=== PATIENT | male | born 1975 | race Caucasian/White ===

== ENCOUNTER 2021-08-16 19:11 | Emergency (ER) | payer OTHER, SELFPAY ==
[2021-08-16 20:00] VITALS: BP 139/72; PULSE 86; RESP 20; TEMP 36.8; O2SAT 96; BMI 29.0
--- NOTE | 2021-08-16 21:13 | ED_ITS ---
HPI - General Adult General Chief complaint: Back Pain/Injury Stated complaint: back pain Time Seen by Provider: 08/16/21 21:08 Source: patient Limitations: no limitations History of Present Illness HPI narrative: This is a 45-year-old male complains of low back pain bilaterally for 4 days. The patient denies any distinct injury such as lifting or any fall. He states the pain seems to have come on after he was bent over going into a line up examiner her bureau and turned around. The pain does radiate to his legs and is worse with ambulation. He denies any numbness or weakness or tingling in his legs. He notes some delay on urination due to the pain but is able to urinate. Denies any urinary frequency or dysuria. He does have history of prior back pain. He has tried taking acetaminophen as well as a muscle relaxant he had left over from prior prescription yesterday. He has not tried any NSAIDs, states they do not work. He has history of arthritis in his hands, and history of asthma. Related Data Previous Rx's Medication Instructions Recorded cyclobenzaprine 10 mg tablet 10 mg PO TID PRN muscle spasm #20 08/16/21 tabs ibuprofen 800 mg tablet 800 mg PO Q8H PRN pain #30 tabs 08/16/21 Allergies Allergy/AdvReac Type Severity Reaction Status Date / Time No Known Allergies Allergy Mild NOT Verified 08/16/21 20:03 APPLICABLE Review of Systems Constitutional: Constitutional: Reports as per HPI Cardiovascular: Cardiovascular: Reports no additional cardiovascular complaints Respiratory: Respiratory: Reports no additional respiratory complaints Gastrointestinal: Gastrointestinal: Reports no additional gastrointestinal complaints Genitourinary: Genitourinary: Reports as per HPI Musculoskeletal: Musculoskeletal: Reports back pain Neurologic: Denies focal weakness, Denies Sensory deficit (Neuro) and Denies paresthesias [facility] Social History Social History Advance Directives: No Physical Exam ED Vital Signs: Vital Signs - 24 hr 08/16/21 20:00 08/16/21 22:22 Temperature 98.2 F 97.6 F Pulse Rate 86 72 Respiratory Rate 20 16 Blood Pressure 139/72 136/83 Pulse Oximetry 96 93 Oxygen Delivery Method Room Air Room Air BMI result Body Mass Index 29.0 Const Other: Patient sitting up on the edge of the gurney. Straight leg elicit some pain bilaterally and about 45 degrees while sitting, though patient seems little dramatic General: no acute distress Orientation/consciousness: patient oriented x3 HENMT Head: Yes normal to inspection General nose exam: Normal external nose present Mouth: moist mucous membranes Throat: Yes posterior oropharynx normal, Yes tonsils normal and Yes uvula midline Eyes Eyelids: Yes eyelids normal Conjunctivae: conjunctivae normal Pupils: Equal, round and reactive pupils present Neck Neck: Yes supple Resp Effort & Inspection: normal respiratory effort Auscultation: clear to auscultation bilaterally Cardio Rate: regular rate Rhythm: regular rhythm Heart sounds: S1 normal heart sound present, S2 normal heart sound present, no gallops, no murmurs and no rubs GI Inspection: No distended Palpation (GI): Soft to palpation and nontender Auscultation: normal bowel sounds Back/Spine/Pelvis Back: other (Tender bilateral lumbar back and lumbar spine) Skin General skin exam: other (Warm and dry) Neuro Other: No sensory motor deficit to the lower extremities General: patient oriented x3 and CN's II-XI intact bilaterally Cranial nerves: Yes Equal, round and reactive pupils present Sensory Exam: No Sensory deficit (Neuro) Extrem General: Yes no pedal edema Psych Affect: normal affect Attitude: cooperative Medical Decision Making [facility] Narrative Medical decision making narrative: Patient with low back pain of onset after he was bending going into a drawer and a bureau. Patient has no urinary symptoms. Patient has had prior episodes of low back pain that were similar. Patient improved with Toradol, Valium, and tramadol. Will discharge the patient on ibuprofen and cyclobenzaprine. Discharge Plan Discharge Clinical Impression: Low back pain Patient Disposition: Home, Self-Care Instructions: Acute Low Back Pain (ED) Additional Instructions: Use an ice pack off and on. Take the medicines as prescribed. Follow up with your primary care physician. If your pain persists, you may need physical therapy referral should Prescriptions: New ibuprofen 800 mg tablet 800 mg PO Q8H PRN (Reason: pain) Qty: 30 0RF cyclobenzaprine 10 mg tablet 10 mg PO TID PRN (Reason: muscle spasm) Qty: 20 0RF
--- NOTE | 2021-08-16 21:26 | PC.NURSE ---
this PCT asked patient if he was able to give a urine sample the patient said he was unable to void.
[2021-08-16] MEDS: Ketorolac Tromethamine 30 MG/ML VIAL IM (22:01)
[2021-08-16] MEDS: diazePAM 2 MG TABLET 6 MG PO (22:02)
[2021-08-16] MEDS: traMADoL HCL 50 MG TABLET 100 MG PO (22:02)
[2021-08-16 22:05] VITALS: RESP 16
[2021-08-16 22:22] VITALS: BP 136/83; PULSE 72; RESP 16; TEMP 36.4; O2SAT 93
== END 2021-08-16 22:30 | disposition home or self-care (01) ==
PROVIDERS: Emergency Provider Emergency Medicine
DX: M54.50 Low back pain, unspecified (principal)
CPT/HCPCS: 96372; 99283; 99284; J1885

== ENCOUNTER 2021-10-01 15:38 | Emergency (ER) | payer OTHER, SELFPAY ==
--- NOTE | ~2021-10-01 | XR_ITS ---
EXAMINATION: XR KNEE, LEFT CLINICAL INFORMATION: Pain and swelling. No new injury. COMPARISON: Left knee radiographs 01/17/2018 TECHNIQUE: Four views of the left knee. FINDINGS: Moderate size knee joint effusion. No acute fracture or dislocation. Mild deformity of the lateral tibial plateau compatible with a prior healed fracture status post screw fixation and cement augmentation. Minimal medial compartment joint space narrowing. Small tricompartmental marginal osteophytes. Enthesophyte formation at the superior patellar pole. XR/XR knee LT 4V IMPRESSION: 1. Moderate size knee joint effusion. No acute fracture identified. 2. Healed lateral tibial plateau fracture status post ORIF. 3. Mild tricompartmental knee joint osteoarthritis.
[2021-10-01 17:12] VITALS: BP 129/85; PULSE 87; RESP 16; TEMP 36.5; O2SAT 95; BMI 30.3
== END 2021-10-01 19:58 | disposition left against medical advice (07) ==
PROVIDERS: Emergency Provider Emergency Medicine; PCP Pediatrics
DX: M25.562 Pain in left knee (principal)
CPT/HCPCS: 73564; 99281; 99283

== ENCOUNTER 2021-10-07 23:50 | Emergency (ER) | payer OTHER, SELFPAY ==
--- NOTE | ~2021-10-07 | XR_ITS ---
EXAMINATION: XR KNEE, LEFT CLINICAL INFORMATION: Pain COMPARISON: 10/01/2021 TECHNIQUE: Four views of the left knee. FINDINGS: No acute fracture or dislocation. Mild deformity redemonstrated in the lateral tibial plateau status post ORIF with 2 cannulated screws traversing the tibial plateau from a lateral to medial approach with cement augmentation in the lateral tibial metaphysis. Small knee joint effusion. XR/XR knee LT 4V IMPRESSION: No acute fracture or dislocation. Small knee joint effusion.
[2021-10-08 00:03] VITALS: BP 135/78; PULSE 87; RESP 18; TEMP 36.6; O2SAT 96; BMI 30.3
[2021-10-08 00:22] LABS: MANUAL DIFF FLAG NO
[2021-10-08 00:25] LABS: Basophils Absolute Auto 0.1 X10*3/uL (0.0-0.2); Basophils Percent Auto 0.9 % (0-2); Eosinophils Absolute Auto 0.2 X10*3/uL (0.0-0.4); Eosinophils Percent Auto 2.2 % (0-4); Hematocrit 43.4 % (42.0-52.0); Hemoglobin 14.5 g/dl (14.0-18.0); Imm Gran Abs Auto 0.05 X10*3/uL (0.00-0.03); Imm Gran Pct Auto 0.6 % (0.0-0.4); Lymphocytes Absolute Auto 3.2 X10*3/uL (1.2-4.9); Lymphocytes Percent Auto 39.8 % (20-40); Mean Corpuscular HGB Conc 33.4 g/dl (31.0-36.0); Mean Corpuscular Hemoglobin 28.3 pg (27.0-33.0); Mean Corpuscular Volume 84.6 fL (80.0-98.0); Mean Platelet Volume 9.2 fL (9.4-12.4); Monocytes Absolute Auto 0.7 X10*3/uL (0.1-1.2); Monocytes Percent Auto 8.3 % (2-11); Neutrophils Absolute Auto 3.9 x10*3/uL (2.0-8.3); Neutrophils Percent Auto 48.2 % (45-73); Platelet Count 252 X10*3/uL (160-400); Red Blood Count 5.13 X10*6/uL (4.60-5.80); White Blood Count 8.1 X10*3/uL (4.8-10.8)
[2021-10-08 00:43] LABS: Alanine Aminotransferase 31 U/L (0-40); Albumin Level 4.4 g/dL (3.5-5.0); Alkaline Phosphatase 108 U/L (39-117); Anion Gap 16 (12-20); Aspartate Amino Transferase 18 U/L (5-37); Bilirubin Total 0.3 mg/dL (0.0-1.0); Blood Urea Nitrogen 5 mg/dL (9-16); Calcium 9.4 mg/dL (8.4-10.2); Carbon Dioxide 24 mmol/L (22-29); Chloride 104 mmol/L (96-108); Creatinine Clr Calc Pharmacy 125.8; Estimated Glomerular Filt Rate > 60; Glucose Random 174 mg/dL (60-115); Sodium 140 mmol/L (135-145); Total Protein 7.3 g/dL (6.5-8.0)
[2021-10-08 01:47] VITALS: BP 150/96; PULSE 79; RESP 16; TEMP 36.6; O2SAT 97
[2021-10-08 04:13] VITALS: BP 139/85; PULSE 68; RESP 14; O2SAT 97
--- NOTE | 2021-10-08 04:24 | ED.EXTPRO ---
HPI - Extremity Problem General Chief complaint: Extremity Problem Stated complaint: L knee pain, out of place? Time Seen by Provider: 10/08/21 04:22 History of Present Illness HPI Narrative: Patient is 45 years old with a history of having screws placed into the left knee in the past. Was seen at [facility] fluid was taken out from the knee. Complaining of worsening pain again. There is no fever no chills no systemic complaints. Patient was given ibuprofen. Patient denies any coughing congestion upper respiratory symptoms. No travel history. No trauma. Patient is from home. There is good range of motion at the knee. The pain however is worse with movement. Related Data Previous Rx's Medication Instructions Recorded cyclobenzaprine 10 mg tablet 10 mg PO TID PRN muscle spasm #20 08/16/21 tabs ibuprofen 800 mg tablet 800 mg PO Q8H PRN pain #30 tabs 08/16/21 Allergies Allergy/AdvReac Type Severity Reaction Status Date / Time No Known Allergies Allergy Mild NOT Verified 10/01/21 17:14 APPLICABLE Review of Systems Review of Systems: Positive knee pain Yes all other systems are reviewed and are negative [facility] Past Medical History Attestation statement: The following information was validated with the patient. Medical History Arthritis Asthma Migraine Social History Social History Advance Directives: No Advance Directives Information Provided: No Physical Exam Vital Signs: Vital Signs: Last Vital Signs Temp 97.8 F 10/08/21 01:47 Pulse 68 10/08/21 04:13 Resp 14 10/08/21 04:13 BP 139/85 10/08/21 04:13 Pulse Ox 97 10/08/21 04:13 O2 Del Method 10/08/21 04:13 BMI result Body Mass Index 30.3 Appearance: Alert. Oriented X3. No acute distress. Eyes: Pupils equal, round and reactive to light. ENT: Pharynx normal. Neck: Normal inspection. Neck supple. No lymph nodes noted. No crepitus CVS: Normal heart rate and rhythm. Pulses normal. Normal S1 and S2 Respiratory: No respiratory distress. Breath sounds normal. No Wheezing. No rales Abdomen: Soft and nontender. No rigidity. No distention. good BS x4 Skin: Skin warm and dry. Normal skin color. Normal skin turgor. Extremities: Examination of the left knee showed positive effusion there is no patellar tenderness. There is no medial lateral collateral ligament tenderness. Range of motion grossly intact good distal pulses skin intact. Moving toes well. Neuro: Oriented X 3. No motor deficit. No sensory deficit. Moving all extermities. No slurred speech MDM - Extremity (Nontraumatic) MDM Narrative Medical decision making narrative: Will tap the knee again to rule out the possibility of infection. Also hope in removal of the effusion may help with the pain. Currently in stable condition. X-ray showed no gross evidence of fracture. Chemistry was normal. Attempted knee fluid aspiration x1. Patient complaining of too much pain. Wanted us to stop. We stopped. Understood risk of infection still exist. Leaving against medical advice more likely patient has inflammation. Will take Motrin for pain. Patient has orthopedic follow-up in a week. He is currently in stable condition. Lab Data Result diagrams: 10/08/21 00:16 10/08/21 00:16 Labs: Lab Results 10/08/21 10/08/21 Range/Units 00:16 00:16 WBC 8.1 (4.8-10.8) X10*3/uL RBC 5.13 (4.60-5.80) X10*6/uL Hgb 14.5 (14.0-18.0) g/dl Hct 43.4 (42.0-52.0) % MCV 84.6 (80.0-98.0) fL MCH 28.3 (27.0-33.0) pg MCHC 33.4 (31.0-36.0) g/dl RDW 15.0 (11.0-16.0) % Plt Count 252 (160-400) X10*3/uL MPV 9.2 L (9.4-12.4) fL Immature Gran % (Auto) 0.6 H (0.0-0.4) % Neut % (Auto) 48.2 (45-73) % Lymph % (Auto) 39.8 (20-40) % [place] % (Auto) 8.3 (2-11) % Eos % (Auto) 2.2 (0-4) % Baso % (Auto) 0.9 (0-2) % Lymph # (Auto) 3.2 (1.2-4.9) X10*3/uL [place] # (Auto) 0.7 (0.1-1.2) X10*3/uL Eos # (Auto) 0.2 (0.0-0.4) X10*3/uL Baso # (Auto) 0.1 (0.0-0.2) X10*3/uL Abs Immat Gran (auto) 0.05 H (0.00-0.03) X10*3/uL Absolute Neuts (auto) 3.9 (2.0-8.3) x10*3/uL Absolute Nucleated RBC 0.000 (0.0-0.012) X10*3/uL Nucleated RBC % (auto) 0.0 (0.0-0.2) /100WBC Sodium 140 (135-145) mmol/L Potassium 4.0 (3.3-5.1) mmol/L Chloride 104 (96-108) mmol/L Carbon Dioxide 24 (22-29) mmol/L Anion Gap 16 (12-20) BUN 5 L (9-16) mg/dL Creatinine 0.96 (0.5-1.4) mg/dL Estim Creat Clear Calc 125.8 Estimated GFR > 60 Random Glucose 174 H (60-115) mg/dL Calcium 9.4 (8.4-10.2) mg/dL Total Bilirubin 0.3 (0.0-1.0) mg/dL AST 18 (5-37) U/L ALT 31 (0-40) U/L Alkaline Phosphatase 108 (39-117) U/L Total Protein 7.3 (6.5-8.0) g/dL Albumin 4.4 (3.5-5.0) g/dL Discharge Plan Discharge Clinical Impression: Arthritis Patient Disposition: Left Against Medical Advice Instructions: Arthrodesis (DC), Osteoarthritis (ED) Additional Instructions: Small risk of infection exists in your knee. Motrin for pain for now. Close follow-up with Orthopedic on an outpatient basis. Prescriptions: No Action ibuprofen 800 mg tablet 800 mg PO Q8H PRN (Reason: pain) Qty: 30 0RF cyclobenzaprine 10 mg tablet 10 mg PO TID PRN (Reason: muscle spasm) Qty: 20 0RF Referrals: Corrina Rubio MD [Primary Care Provider] - (Please follow-up closely with Orthopedics. Small risk of infection is still exists.)
[2021-10-08] MEDS: Magnesium Hydrox/Alum Hydrox 30 ML ORAL.SUSP PO (04:27)
== END 2021-10-08 04:45 | disposition left against medical advice (07) ==
PROVIDERS: Emergency Provider Emergency Medicine Emergency Medical Services; PCP Pediatrics
DX: M17.12 Unilateral primary osteoarthritis, left knee (principal); M25.462 Effusion, left knee; M25.562 Pain in left knee
CPT/HCPCS: 36415; 73564; 80053; 85025; 99283; 99284

== ENCOUNTER → 2021-10-21 13:47 | Outpatient (BNVA) | payer OTHER, SELFPAY | PROVIDERS: PCP Pediatrics; Visit Provider Physician Assistant | DX: M17.32 Unilateral post-traumatic osteoarthritis, left knee (principal); S82.142S Displaced bicondylar fracture of left tibia, sequela; Z96.9 Presence of functional implant, unspecified | CPT/HCPCS: 99202 ==

== ENCOUNTER 2022-02-25 16:38 | Emergency (ER) | payer OTHER, SELFPAY ==
[2022-02-25 16:43] VITALS: BP 139/83; PULSE 100; RESP 20; TEMP 36.8; O2SAT 97; BMI 29.7
--- NOTE | 2022-02-25 16:44 | ECG_ITS ---
Test Reason : CHEST PAIN Blood Pressure : / mmHG Vent. Rate : 091 BPM Atrial Rate : 091 BPM P-R Int : 140 ms QRS Dur : 100 ms QT Int : 342 ms P-R-T Axes : 059 -05 060 degrees QTc Int : 420 ms Normal sinus rhythm Normal ECG When compared with ECG of 18-AUG-2017 08:54, No significant change was found Referred By: Emeterio Samayoa Electronically Signed By:Wild Rose
--- NOTE | 2022-02-25 16:45 | ED.CHESTPAIN ---
HPI - Chest Pain General Chief Complaint: Chest Pain <ARIC Myrick - Last Filed: 03/01/22 12:49> Stated Complaint: covid + 02/25 sob,cough,chest pain,fever <ARIC Myrick - Last Filed: 03/01/22 12:49> Time Seen by Provider: 02/25/22 22:32 <ARIC Myrick - Last Filed: 03/01/22 12:49> Source: patient <Gianfranco Pinto MD - Last Filed: 02/26/22 00:56> Mode of arrival: ambulatory <Gianfranco Pinto MD - Last Filed: 02/26/22 00:56> Limitations: no limitations <Gianfranco Pinto MD - Last Filed: 02/26/22 00:56> History of Present Illness HPI narrative: Patient otherwise healthy has received COVID vaccine been sick for last 3 days with cough body aches pain all over the body got tested for COVID positive at home today at some pain on the left side of the chest when taking a deep breath and cough no significant shortness of breath saturating 98% on room air <Gianfranco Pinto MD - Last Filed: 02/26/22 00:56> Related Data Home Medications: Previous Rx's Medication Instructions Recorded cyclobenzaprine 10 mg tablet 10 mg PO TID PRN muscle spasm #20 08/16/21 tabs ibuprofen 800 mg tablet 800 mg PO Q8H PRN pain #30 tabs 08/16/21 codeine 10 mg-guaifenesin 100 mg/5 10 ml PO Q6H PRN cough #237 mL 02/25/22 mL oral liquid <ARIC Myrick - Last Filed: 03/01/22 12:49> Allergies/Adverse Reactions: Allergies Allergy/AdvReac Type Severity Reaction Status Date / Time No Known Allergies Allergy Mild NOT Verified 10/21/21 14:08 APPLICABLE <ARIC Myrick Last Filed: 03/01/22 12:49> Review of Systems Review of Systems: Yes all other systems are reviewed and are negative <Gianfranco Pinto MD - Last Filed: 02/26/22 00:56> PMFSH Past Medical History Medical History: Medical History Arthritis Asthma Migraine <ARIC Myrick - Last Filed: 03/01/22 12:49> Social History Social History: Social History Advance Directives: No Advance Directives Information Provided: Yes <ARIC Myrick - Last Filed: 03/01/22 12:49> Physical Exam Vital Signs: Vital Signs: Last Vital Signs Temp 98.8 F 02/25/22 21:59 Pulse 88 02/25/22 22:05 Resp 16 02/25/22 22:05 BP 148/84 H 02/25/22 21:59 Pulse Ox 98 02/25/22 22:05 O2 Del Method 02/25/22 22:05 BMI result Body Mass Index 29.7 <ARIC Myrick - Last Filed: 03/01/22 12:49> Vital Signs: Last Vital Signs Temp 98.8 F 02/25/22 21:59 Pulse 88 02/25/22 22:05 Resp 16 02/25/22 22:05 BP 148/84 H 02/25/22 21:59 Pulse Ox 98 02/25/22 22:05 O2 Del Method 02/25/22 22:05 BMI result Body Mass Index 29.7 <Gianfranco Pinto MD - Last Filed: 02/26/22 00:56> Appearance: Alert. Oriented X3. No acute distress. Eyes: PERRLA, No Nystagmus ENT: Pharynx normal. Oral Mucosa moist Neck: Normal inspection. Neck supple. CVS: Normal heart rate and rhythm. Pulses normal. Respiratory: No respiratory distress. Equal air entry bilateral, no wheezing/rales/rhonchi Abdomen: Soft and nontender. Bowel sounds are present, no mass palpable, no CVA tenderness Skin: Skin warm and dry. Normal skin color. Normal skin turgor. Extremities: No lower extremity edema. No calf tenderness Neuro: Oriented X 3. No motor deficit. No sensory deficit.No cerebellar signs , cranial nerves II-XII intact <Gianfranco Pinto MD - Last Filed: 02/26/22 00:56> Course Course Course Narrative: RME: 46 yold patient presents to the ED for chest pain, headache, and nausea. patient is covid positive and took test at home. <ARIC Myrick - Last Filed: 03/01/22 12:49> Medications Administered Discontinued Medications Generic Name Dose Route Start Last Admin Trade Name Freq PRN Reason Stop Dose Admin Guaifenesin/Codeine Phosphate 10 ml 02/25/22 22:47 02/25/22 22:58 Guaifen/Codeine Sf 200/20/10ml 10 Ml Liquid PO 02/25/22 22:48 10 ml ONCE ONE Administration <ARIC Myrick - Last Filed: 03/01/22 12:49> Medications Administered Discontinued Medications Generic Name Dose Route Start Last Admin Trade Name Freq PRN Reason Stop Dose Admin Guaifenesin/Codeine Phosphate 10 ml 02/25/22 22:47 02/25/22 22:58 Guaifen/Codeine Sf 200/20/10ml 10 Ml Liquid PO 02/25/22 22:48 10 ml ONCE ONE Administration <Gianfranco Pinto MD - Last Filed: 02/26/22 00:56> Medical Decision Making Medical Decision Making [facility] Narrative: Patient COVID chest x-ray negative chest wall pain satting 98% coughing causing the musculoskeletal pain discharge patient home cough syrup <Gianfranco Pinto MD - Last Filed: 02/26/22 00:56> Lab Data [facility] Lab Attestation statement: I reviewed the patient's lab results. <Gianfranco Pinto MD - Last Filed: 02/26/22 00:56> Result Diagrams: : 02/25/22 17:07 02/25/22 17:07 <ARIC Myrick - Last Filed: 03/01/22 12:49> Labs: Lab Results 02/25/22 02/25/22 02/25/22 Range/Units 17:07 17:07 17:07 WBC 8.5 (4.8-10.8) X10*3/uL RBC 5.51 (4.60-5.80) X10*6/uL Hgb 15.2 (14.0-18.0) g/dl Hct 45.8 (42.0-52.0) % MCV 83.1 (80.0-98.0) fL MCH 27.6 (27.0-33.0) pg MCHC 33.2 (31.0-36.0) g/dl RDW 14.4 (11.0-16.0) % Plt Count 244 (160-400) X10*3/uL MPV 9.5 (9.4-12.4) fL Immature Gran % (Auto) 0.2 (0.0-0.4) % Neut % (Auto) 68.2 (45-73) % Lymph % (Auto) 23.5 (20-40) % [place] % (Auto) 6.6 (2-11) % Eos % (Auto) 0.8 (0-4) % Baso % (Auto) 0.7 (0-2) % Lymph # (Auto) 2.0 (1.2-4.9) X10*3/uL [place] # (Auto) 0.6 (0.1-1.2) X10*3/uL Eos # (Auto) 0.1 (0.0-0.4) X10*3/uL Baso # (Auto) 0.1 (0.0-0.2) X10*3/uL Abs Immat Gran (auto) 0.02 (0.00-0.03) X10*3/uL Absolute Neuts (auto) 5.8 (2.0-8.3) x10*3/uL Absolute Nucleated RBC 0.000 (0.0-0.012) X10*3/uL Nucleated RBC % (auto) 0.0 (0.0-0.2) /100WBC PT 11.6 (10.0-13.1) SEC INR 1.0 (0.9-1.1) APTT 29.8 (26.0-36.4) SEC Sodium 136 (135-145) mmol/L Potassium 3.9 (3.3-5.1) mmol/L Chloride 101 (96-108) mmol/L Carbon Dioxide 23 (22-29) mmol/L Anion Gap 16 (12-20) BUN 6 L (9-16) mg/dL Creatinine 0.82 (0.5-1.4) mg/dL Estim Creat Clear Calc 144.3 Estimated GFR > 60 Random Glucose 155 H (60-115) mg/dL Calcium 9.3 (8.4-10.2) mg/dL Total Bilirubin 0.4 (0.0-1.0) mg/dL AST 14 (5-37) U/L ALT 20 (0-40) U/L Alkaline Phosphatase 102 (39-117) U/L Troponin I High Sens (<3.5-35.0) ng/L B-Natriuretic Peptide (<100) pg/mL Total Protein 7.3 (6.5-8.0) g/dL Albumin 4.5 (3.5-5.0) g/dL Influenza Type A (PCR) (Negative) Influenza Type B (PCR) (Negative) RSV RNA Qual (PCR) (Negative) SARS-CoV-2 RNA (RT-PCR) (Negative) 02/25/22 02/25/22 02/25/22 Range/Units 17:07 17:07 17:07 WBC (4.8-10.8) X10*3/uL RBC (4.60-5.80) X10*6/uL Hgb (14.0-18.0) g/dl Hct (42.0-52.0) % MCV (80.0-98.0) fL MCH (27.0-33.0) pg MCHC (31.0-36.0) g/dl RDW (11.0-16.0) % Plt Count (160-400) X10*3/uL MPV (9.4-12.4) fL Immature Gran % (Auto) (0.0-0.4) % Neut % (Auto) (45-73) % Lymph % (Auto) (20-40) % [place] % (Auto) (2-11) % Eos % (Auto) (0-4) % Baso % (Auto) (0-2) % Lymph # (Auto) (1.2-4.9) X10*3/uL [place] # (Auto) (0.1-1.2) X10*3/uL Eos # (Auto) (0.0-0.4) X10*3/uL Baso # (Auto) (0.0-0.2) X10*3/uL Abs Immat Gran (auto) (0.00-0.03) X10*3/uL Absolute Neuts (auto) (2.0-8.3) x10*3/uL Absolute Nucleated RBC (0.0-0.012) X10*3/uL Nucleated RBC % (auto) (0.0-0.2) /100WBC PT (10.0-13.1) SEC INR (0.9-1.1) APTT (26.0-36.4) SEC Sodium (135-145) mmol/L Potassium (3.3-5.1) mmol/L Chloride (96-108) mmol/L Carbon Dioxide (22-29) mmol/L Anion Gap (12-20) BUN (9-16) mg/dL Creatinine (0.5-1.4) mg/dL Estim Creat Clear Calc Estimated GFR Random Glucose (60-115) mg/dL Calcium (8.4-10.2) mg/dL Total Bilirubin (0.0-1.0) mg/dL AST (5-37) U/L ALT (0-40) U/L Alkaline Phosphatase (39-117) U/L Troponin I High Sens < 3.5 (<3.5-35.0) ng/L B-Natriuretic Peptide < 10 (<100) pg/mL Total Protein (6.5-8.0) g/dL Albumin (3.5-5.0) g/dL Influenza Type A (PCR) NEGATIVE (Negative) Influenza Type B (PCR) NEGATIVE (Negative) RSV RNA Qual (PCR) NEGATIVE (Negative) SARS-CoV-2 RNA (RT-PCR) POSITIVE A (Negative) <ARIC Myrick - Last Filed: 03/01/22 12:49> Lab Results 02/25/22 02/25/22 02/25/22 Range/Units 17:07 17:07 17:07 WBC 8.5 (4.8-10.8) X10*3/uL RBC 5.51 (4.60-5.80) X10*6/uL Hgb 15.2 (14.0-18.0) g/dl Hct 45.8 (42.0-52.0) % MCV 83.1 (80.0-98.0) fL MCH 27.6 (27.0-33.0) pg MCHC 33.2 (31.0-36.0) g/dl RDW 14.4 (11.0-16.0) % Plt Count 244 (160-400) X10*3/uL MPV 9.5 (9.4-12.4) fL Immature Gran % (Auto) 0.2 (0.0-0.4) % Neut % (Auto) 68.2 (45-73) % Lymph % (Auto) 23.5 (20-40) % [place] % (Auto) 6.6 (2-11) % Eos % (Auto) 0.8 (0-4) % Baso % (Auto) 0.7 (0-2) % Lymph # (Auto) 2.0 (1.2-4.9) X10*3/uL [place] # (Auto) 0.6 (0.1-1.2) X10*3/uL Eos # (Auto) 0.1 (0.0-0.4) X10*3/uL Baso # (Auto) 0.1 (0.0-0.2) X10*3/uL Abs Immat Gran (auto) 0.02 (0.00-0.03) X10*3/uL Absolute Neuts (auto) 5.8 (2.0-8.3) x10*3/uL Absolute Nucleated RBC 0.000 (0.0-0.012) X10*3/uL Nucleated RBC % (auto) 0.0 (0.0-0.2) /100WBC PT 11.6 (10.0-13.1) SEC INR 1.0 (0.9-1.1) APTT 29.8 (26.0-36.4) SEC Sodium 136 (135-145) mmol/L Potassium 3.9 (3.3-5.1) mmol/L Chloride 101 (96-108) mmol/L Carbon Dioxide 23 (22-29) mmol/L Anion Gap 16 (12-20) BUN 6 L (9-16) mg/dL Creatinine 0.82 (0.5-1.4) mg/dL Estim Creat Clear Calc 144.3 Estimated GFR > 60 Random Glucose 155 H (60-115) mg/dL Calcium 9.3 (8.4-10.2) mg/dL Total Bilirubin 0.4 (0.0-1.0) mg/dL AST 14 (5-37) U/L ALT 20 (0-40) U/L Alkaline Phosphatase 102 (39-117) U/L Troponin I High Sens (<3.5-35.0) ng/L B-Natriuretic Peptide (<100) pg/mL Total Protein 7.3 (6.5-8.0) g/dL Albumin 4.5 (3.5-5.0) g/dL Influenza Type A (PCR) (Negative) Influenza Type B (PCR) (Negative) RSV RNA Qual (PCR) (Negative) SARS-CoV-2 RNA (RT-PCR) (Negative) 02/25/22 02/25/22 02/25/22 Range/Units 17:07 17:07 17:07 WBC (4.8-10.8) X10*3/uL RBC (4.60-5.80) X10*6/uL Hgb (14.0-18.0) g/dl Hct (42.0-52.0) % MCV (80.0-98.0) fL MCH (27.0-33.0) pg MCHC (31.0-36.0) g/dl RDW (11.0-16.0) % Plt Count (160-400) X10*3/uL MPV (9.4-12.4) fL Immature Gran % (Auto) (0.0-0.4) % Neut % (Auto) (45-73) % Lymph % (Auto) (20-40) % [place] % (Auto) (2-11) % Eos % (Auto) (0-4) % Baso % (Auto) (0-2) % Lymph # (Auto) (1.2-4.9) X10*3/uL [place] # (Auto) (0.1-1.2) X10*3/uL Eos # (Auto) (0.0-0.4) X10*3/uL Baso # (Auto) (0.0-0.2) X10*3/uL Abs Immat Gran (auto) (0.00-0.03) X10*3/uL Absolute Neuts (auto) (2.0-8.3) x10*3/uL Absolute Nucleated RBC (0.0-0.012) X10*3/uL Nucleated RBC % (auto) (0.0-0.2) /100WBC PT (10.0-13.1) SEC INR (0.9-1.1) APTT (26.0-36.4) SEC Sodium (135-145) mmol/L Potassium (3.3-5.1) mmol/L Chloride (96-108) mmol/L Carbon Dioxide (22-29) mmol/L Anion Gap (12-20) BUN (9-16) mg/dL Creatinine (0.5-1.4) mg/dL Estim Creat Clear Calc Estimated GFR Random Glucose (60-115) mg/dL Calcium (8.4-10.2) mg/dL Total Bilirubin (0.0-1.0) mg/dL AST (5-37) U/L ALT (0-40) U/L Alkaline Phosphatase (39-117) U/L Troponin I High Sens < 3.5 (<3.5-35.0) ng/L B-Natriuretic Peptide < 10 (<100) pg/mL Total Protein (6.5-8.0) g/dL Albumin (3.5-5.0) g/dL Influenza Type A (PCR) NEGATIVE (Negative) Influenza Type B (PCR) NEGATIVE (Negative) RSV RNA Qual (PCR) NEGATIVE (Negative) SARS-CoV-2 RNA (RT-PCR) POSITIVE A (Negative) <Gianfranco Pinto MD - Last Filed: 02/26/22 00:56> Independent Interpretation I performed an independent interpretation of an: EKG <Gianfranco Pinto MD - Last Filed: 02/26/22 00:56> Interpretation: Normal sinus rhythm heart rate 91 beats per minute normal interval normal axis no acute ischemia <Gianfranco Pinto MD - Last Filed: 02/26/22 00:56> Discharge Plan Discharge Clinical Impression: COVID-19 <ARIC Myrick - Last Filed: 03/01/22 12:49> Patient Disposition: Home, Self-Care <ARIC Myrick - Last Filed: 03/01/22 12:49> Instructions: COVID-19 (Coronavirus Disease 2019) (ED) <ARIC Myrick - Last Filed: 03/01/22 12:49> Additional Instructions: Cough syrup as prescribed Report to the ED if increased shortness of breath Social distancing advised <ARIC Myrick - Last Filed: 03/01/22 12:49> Prescriptions: New codeine-guaifenesin 10-100 mg/5 mL liquid 10 ml PO Q6H PRN (Reason: cough) Qty: 237 0RF No Action ibuprofen 800 mg tablet 800 mg PO Q8H PRN (Reason: pain) Qty: 30 0RF cyclobenzaprine 10 mg tablet 10 mg PO TID PRN (Reason: muscle spasm) Qty: 20 0RF <ARIC Myrick - Last Filed: 03/01/22 12:49> Interventions: ED Discharge Assessment Last Done: 02/25/22 22:59 <ARIC Myrick - Last Filed: 03/01/22 12:49> Discharge Date/Time: 02/25/22 23:01 <ARIC Myrick - Last Filed: 03/01/22 12:49>
--- OUTSIDE RECORDS SUMMARY | 2022-02-25 17:12 | XMS_ITS | Continuity of Care Document ---
:1975 Demographics Address [address] [place] [address]
--- OUTSIDE RECORDS SUMMARY | 2022-02-25 17:12 | XMS_ITS | Continuity of Care Document ---
:1975 Demographics Address [address] [place] [address]
--- OUTSIDE RECORDS SUMMARY | 2022-02-25 17:13 | XMS_ITS | Continuity of Care Document ---
:1975 [facility]
--- OUTSIDE RECORDS SUMMARY | 2022-02-25 17:13 | XMS_ITS | Continuity of Care Document ---
:1975 Demographics Address [address] [place] [address]
[2022-02-25 17:16] LABS: MANUAL DIFF FLAG NO
[2022-02-25 17:17] LABS: Basophils Absolute Auto 0.1 X10*3/uL (0.0-0.2); Basophils Percent Auto 0.7 % (0-2); Eosinophils Absolute Auto 0.1 X10*3/uL (0.0-0.4); Eosinophils Percent Auto 0.8 % (0-4); Hematocrit 45.8 % (42.0-52.0); Hemoglobin 15.2 g/dl (14.0-18.0); Imm Gran Abs Auto 0.02 X10*3/uL (0.00-0.03); Imm Gran Pct Auto 0.2 % (0.0-0.4); Lymphocytes Percent Auto 23.5 % (20-40); Mean Corpuscular HGB Conc 33.2 g/dl (31.0-36.0); Mean Corpuscular Hemoglobin 27.6 pg (27.0-33.0); Mean Corpuscular Volume 83.1 fL (80.0-98.0); Mean Platelet Volume 9.5 fL (9.4-12.4); Monocytes Absolute Auto 0.6 X10*3/uL (0.1-1.2); Monocytes Percent Auto 6.6 % (2-11); Neutrophils Absolute Auto 5.8 x10*3/uL (2.0-8.3); Neutrophils Percent Auto 68.2 % (45-73); Platelet Count 244 X10*3/uL (160-400); Red Blood Count 5.51 X10*6/uL (4.60-5.80); Red Cell Distribution Width 14.4 % (11.0-16.0); White Blood Count 8.5 X10*3/uL (4.8-10.8)
[2022-02-25 17:35] LABS: Alanine Aminotransferase 20 U/L (0-40); Albumin Level 4.5 g/dL (3.5-5.0); Alkaline Phosphatase 102 U/L (39-117); Anion Gap 16 (12-20); Aspartate Amino Transferase 14 U/L (5-37); Bilirubin Total 0.4 mg/dL (0.0-1.0); Blood Urea Nitrogen 6 mg/dL (9-16); Calcium 9.3 mg/dL (8.4-10.2); Carbon Dioxide 23 mmol/L (22-29); Chloride 101 mmol/L (96-108); Creatinine Clr Calc Pharmacy 144.3; Estimated Glomerular Filt Rate > 60; Glucose Random 155 mg/dL (60-115); Potassium 3.9 mmol/L (3.3-5.1); Sodium 136 mmol/L (135-145); Total Protein 7.3 g/dL (6.5-8.0)
[2022-02-25 17:37] LABS: Prothrombin Time 11.6 SEC (10.0-13.1)
[2022-02-25 17:39] LABS: B Type Natriuretic Peptide < 10 pg/mL (<100); Partial Thromboplastin Time 29.8 SEC (26.0-36.4)
[2022-02-25 17:43] LABS: Troponin-I High Sensitivity < 3.5 ng/L (<3.5-35.0)
[2022-02-25 17:51] LABS: Influenza A PCR NEGATIVE (Negative); Influenza B PCR NEGATIVE (Negative); Resp Syncy Virus RNA Qual PCR NEGATIVE (Negative); SARS COV2 PCR INHOUSE POSITIVE (Negative)
[2022-02-25 21:59] VITALS: BP 148/84; PULSE 83; RESP 17; TEMP 37.1; O2SAT 98
[2022-02-25 22:05] VITALS: PULSE 88; RESP 16; O2SAT 98
--- NOTE | 2022-02-25 22:08 | PC.NURSE ---
Pt brought in from waiting room, resting on stretcher at this time in no apparent distress. Pt reports chest pain 8/10 more pulmonary than cardiac. Pt reports he has felt like this for a few a days now. Denies other complaints at this time
[2022-02-25] MEDS: guaiFEN/Codeine SF 200/20/10ML 10 ML LIQUID PO (22:58)
== END 2022-02-25 23:01 | disposition home or self-care (01) ==
PROVIDERS: Physician Assistant; Emergency Provider Internal Medicine
DX: U07.1 COVID-19 (principal); R06.02 Shortness of breath
CPT/HCPCS: 0241U; 36415; 71045; 80053; 83880; 84484; 85025; 85610; 85730; 93005; 99283; 99284

== ENCOUNTER 2023-03-09 14:40 | Emergency (ER) | payer OTHER, SELFPAY ==
--- NOTE | 2023-03-09 15:30 | ED_ITS ---
HPI - Dizziness General Chief Complaint: Dizziness Stated Complaint: Dizzy Related Data Previous Rx's Medication Instructions Recorded cyclobenzaprine 10 mg tablet 10 mg PO TID PRN muscle spasm #20 08/16/21 tabs ibuprofen 800 mg tablet 800 mg PO Q8H PRN pain #30 tabs 08/16/21 codeine 10 mg-guaifenesin 100 mg/5 10 ml PO Q6H PRN cough #237 mL 02/25/22 mL oral liquid Allergies Allergy/AdvReac Type Severity Reaction Status Date / Time No Known Allergies Allergy Mild NOT Verified 03/09/23 15:35 APPLICABLE FOR[facility]LY [facility] Past Medical History Onset Date is defined in the Problem List Problems that require an onset date and time if occurred within 24 hrs of arrival to the ED Aortic Dissection and Rupture; Neurologic impairment; Cardiopulmonary Arrest; Endotracheal Intubation; Insertion or Replacement of Mechanical Circulatory Assist Device Medical History Arthritis Asthma Migraine Social History Social History Advance Directives: No Advance Directives Information Provided: No Physical Exam 2 Vital Signs: Vital Signs: Last Vital Signs Temp 97.6 F 03/09/23 15:31 Pulse 77 03/09/23 15:31 Resp 20 03/09/23 15:31 BP 144/93 H 03/09/23 15:31 Pulse Ox 98 03/09/23 15:31 O2 Del Method Room Air 03/09/23 15:31 BMI result Body Mass Index 31.7 Course Course Course Narrative: RME: 47 yo w/no sig PMHx presenting to the ED c/o dizziness described as room spinning & faint since 4AM, admits fell onto bed from sx denies head trauam or LOC, admits then went back to sleep and woke up feeling worse. +TIM and N/V w/hematemsis x1 episode. Also reports blurry vision. denies taking AC No focal deficits EKG, labs, viral testing, UA CXR, head CT ordered Full HPI, ROS and PE to be performed by primary ED provider. Medical Decision Making Lab Data 03/09/23 15:48 03/09/23 15:48 Labs: Lab Results 03/09/23 Range/Units 15:48 WBC 7.6 (4.8-10.8) X10*3/uL RBC 5.74 (4.60-5.80) X10*6/uL Hgb 15.7 (14.0-18.0) g/dl Hct 47.7 (42.0-52.0) % MCV 83.1 (80.0-98.0) fL MCH 27.4 (27.0-33.0) pg MCHC 32.9 (31.0-36.0) g/dl RDW 15.7 (11.0-16.0) % Plt Count 239 (160-400) X10*3/uL MPV 10.1 (9.4-12.4) fL Immature Gran % (Auto) 0.4 (0.0-0.4) % Neut % (Auto) 62.1 (45-73) % Lymph % (Auto) 29.5 (20-40) % Putnam % (Auto) 6.1 (2-11) % Eos % (Auto) 0.8 (0-4) % Baso % (Auto) 1.1 (0-2) % Lymph # (Auto) 2.2 (1.2-4.9) X10*3/uL Putnam # (Auto) 0.5 (0.1-1.2) X10*3/uL Eos # (Auto) 0.1 (0.0-0.4) X10*3/uL Baso # (Auto) 0.1 (0.0-0.2) X10*3/uL Abs Immat Gran (auto) 0.03 (0.00-0.03) X10*3/uL Absolute Neuts (auto) 4.7 (2.0-8.3) x10*3/uL Absolute Nucleated RBC 0.000 (0.0-0.012) X10*3/uL Nucleated RBC % (auto) 0.0 (0.0-0.2) /100WBC PT 11.0 L (11.1-13.3) SEC INR 0.9 (0.9-1.1) Sodium 138 (135-145) mmol/L Potassium 4.1 (3.3-5.1) mmol/L Chloride 106 (96-108) mmol/L Carbon Dioxide 24 (22-29) mmol/L Anion Gap 12 (12-20) BUN 6 L (9-16) mg/dL Creatinine 0.84 (0.5-1.4) mg/dL Estim Creat Clear Calc 143.7 Estimated GFR > 60 Random Glucose 164 H (60-115) mg/dL Calcium 9.7 (8.4-10.2) mg/dL Magnesium 2.1 (1.6-2.6) mg/dL Total Bilirubin 0.4 (0.0-1.0) mg/dL Direct Bilirubin 0.1 (0.0-0.5) mg/dL AST 19 (5-37) U/L ALT 26 (0-40) U/L Alkaline Phosphatase 103 (39-117) U/L Troponin I High Sens < 2.7 (<3.5-35.0) ng/L Total Protein 7.6 (6.5-8.0) g/dL Albumin 4.4 (3.5-5.0) g/dL COVID-19 (ALLEN) Negative (Negative) COVID-19 Clin Com See Note Influenza Type A (LORRAINE) Negative (Negative) Influenza Type B (LORRAINE) Negative (Negative) Influenza A & B Note See Note Discharge Plan Discharge Clinical Impression: Dizziness Patient Disposition: Left W/O Completing Treatment Prescriptions: No Action ibuprofen 800 mg tablet 800 mg PO Q8H PRN (Reason: pain) Qty: 30 0RF cyclobenzaprine 10 mg tablet 10 mg PO TID PRN (Reason: muscle spasm) Qty: 20 0RF codeine-guaifenesin 10-100 mg/5 mL liquid 10 ml PO Q6H PRN (Reason: cough) Qty: 237 0RF Discharge Date/Time: 03/10/23 01:15
[2023-03-09 15:31] VITALS: BP 144/93; PULSE 77; RESP 20; TEMP 36.4; O2SAT 98; BMI 31.7
[2023-03-09 16:09] LABS: Alanine Aminotransferase 26 U/L (0-40); Albumin Level 4.4 g/dL (3.5-5.0); Alkaline Phosphatase 103 U/L (39-117); Anion Gap 12 (12-20); Aspartate Amino Transferase 19 U/L (5-37); Bilirubin Direct 0.1 mg/dL (0.0-0.5); Bilirubin Total 0.4 mg/dL (0.0-1.0); Blood Urea Nitrogen 6 mg/dL (9-16); Calcium 9.7 mg/dL (8.4-10.2); Carbon Dioxide 24 mmol/L (22-29); Chloride 106 mmol/L (96-108); Creatinine Clr Calc Pharmacy 143.7; Estimated Glomerular Filt Rate > 60; Glucose Random 164 mg/dL (60-115); Magnesium 2.1 mg/dL (1.6-2.6); Potassium 4.1 mmol/L (3.3-5.1); Sodium 138 mmol/L (135-145); Total Protein 7.6 g/dL (6.5-8.0)
--- NOTE | 2023-03-10 01:14 | PC.NURSE ---
pt not in waiting room. on 2 calls
== END 2023-03-10 01:15 | disposition left against medical advice (07) ==
PROVIDERS: Physician Assistant; Emergency Provider Emergency Medicine
DX: R42 Dizziness and giddiness (principal); R51.9 Headache, unspecified; R11.2 Nausea with vomiting, unspecified; Z11.52 Encounter for screening for COVID-19; Z20.828 Contact with and (suspected) exposure to other viral communicable diseases
CPT/HCPCS: 70450; 71045; 80048; 80076; 83735; 84484; 85025; 85610; 87502; 87635; 93005; 99283; 99284

== ENCOUNTER → 2023-03-09 15:33 | Outpatient (BNV) | payer OTHER, SELFPAY | PROVIDERS: Emergency Provider Emergency Medicine; Visit Provider Internal Medicine Cardiovascular Disease | DX: R42 Dizziness and giddiness (principal) | CPT/HCPCS: 93010 ==

== ENCOUNTER 2023-07-04 21:43 | Emergency (ER) | payer OTHER, SELFPAY ==
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
[2023-07-04 22:18] VITALS: BP 145/89; BP 158/64; PULSE 102; PULSE 95; RESP 16; TEMP 36.8; O2SAT 100; O2SAT 96; BMI 31.7
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
--- OUTSIDE RECORDS SUMMARY | 2023-07-04 22:53 | XMS_ITS | Continuity of Care Document ---
Author Organization [facility] Address [address] [place] [address]- Care Team Providers Care Building Carpenter Name Role Phone Corrina Rubio MD Primary Care Physician [phone] Encounter [facility] Date(s): 03/14/23 - 04/13/[address] [address]- Allergies, Adverse Reactions, Alerts No Known Allergies Immunizations Given and Recorded Vaccine Date Status Refusal Reason SARS-CoV-2(COVID-19)mRNA-LNP vac([id number]) 01/20/23 Given influenza virus vaccine, inactivated 01/20/23 Give n influenza virus vaccine, inactivated 03/24/22 Give n influenza virus vaccine, inactivated 02/05/21 Give n influenza virus vaccine, inactivated 01/19/19 Give n influenza virus vaccine, inactivated 04/04/17 Give n influenza virus vaccine, inactivated 02/03/16 Give n influenza virus vaccine, inactivated 03/22/14 Give n influenza virus vaccine, inactivated 11/22/12 Give n influenza virus vaccine, inactivated 12/14/11 Ap rded influenza virus vaccine, inactivated 01/26/08 Give n [id number] 12y+ bivalent booster vax 03/16/22 Recorded SARS-CoV-2 (COVID-19) mRNA BNT-162b2 vac 02/05/21 Given SARS-CoV-2 (COVID-19) mRNA BNT-162b2 vac 07/22/20 Given SARS-CoV-2 (COVID-19) mRNA BNT-162b2 vac 07/01/20 Given tetanus-diphtheria toxoids (Td) 10/15/17 Recorded tetanus-diphtheria toxoids (Td) 02/05/15 Recorded tetanus-diphtheria toxoids (Td) 1 02/04/12 Given pneumococcal 23-valent vaccine 03/14/15 Recorded Pneumococcal Vaccine (oldterm) 01/26/08 Given 1Admin Note: vis 03/30/11 Medications Cane See Instructions, # 1 each, Maintenance, Chronic R knee pain, ICD10 25.561, 05/22/18 19:07:05 EDT, Compound Start Date: 05/22/18 Status: Ordered CPAP Machine See Instructions, # 1 each, Maintenance, AutoCPAP 8-20 cm H20, use Daily when sleeping, 05/03/22 11:40:00 EST, Supply Start Date: 05/03/22 Status: Ordered Flovent HFA 110 mcg/inh inhalation aerosol 2 puffs, Inhalation, 2 times a day, rinse mouth and throat after use. This is an increase in dose.,# 12 Gm, 11 Refills, Maintenance, 10/23/21 10:32:00 EDT, Aerosol, [id number], 183, cm, 10/23/21 9:25:00 EDT, Height Start Date: 10/23/21 Status: Ordered L Wrist Splint L Wrist Splint, See Instructions, # 1 each, Refills 0, Tot. Refills 0, Maintenance, Use QHS. Diagnosis: L Carpal Tunnel Syndrome. ICD10 G56.00, 06/27/20 11:24:00 EDT, Supply Start Date: 06/27/20 Status: Ordered Left counterforce brace Left counterforce brace, See Instructions, # 1 each, Refills 0, Tot. Refills 0, Maintenance, Wear daily for left lateral epicondylitis M77.12, 02/05/21 15:42:00 EST, Supply Start Date: 02/05/21 Status: Ordered meclizine 25 mg oral tablet 1 tablet = 25 mg, By Mouth, 3 times a day, PRN for dizziness, # 30 tablet, 0 Refills, Acute 09/09/25 13:27:00 EDT, 04/01/23 13:27:00 EST, Tablet, [id number], Partial fill upon patient requestif the prescription is for a schedule II opioid brannon... Start Date: 04/01/23 Stop Date: 09/09/25 Status: Ordered Melatonin 5 mg oral tablet 1 tablet = 5 mg, By Mouth, Daily at bedtime, PRN for insomnia, # 60 tablet, 1 Refills, Maintenance,01/20/23 18:15:00 EST, Tablet, [id number], 183, cm, 01/20/23 18:01:00 EST, Height, 105.4, kg, 03/17/22 13:34:00 EST, Dry Weight Start Date: 01/20/23 Status: Ordered meloxicam 15 mg oral tablet 1 tablet = 15 mg, By Mouth, Daily, PRN Pain, # 30 tablet, 1 Refills, Maintenance, 10/26/21 18:49:00EDT, Tablet, [id number], Partial fill upon patient request if the prescription is for a schedule II opioid drug., 183, cm, 10/23/21 10:46:00 ED... Start Date: 10/26/21 Status: Ordered ProAir HFA 90 mcg/inh inhalation aerosol with adapter 2, puffs, Inhalation, Every 4 hours, PRN, # 8.5 Gm, Refills 1, Tot. Refills 1, Maintenance, 06/27/20 11:13:00 EDT, Aerosol, Route to Pharmacy Electronically, [id number], [id number], 183, cm, 06/27/20 10:28:00 EDT, Height Start Date: 06/27/20 Status: Ordered Right thumb spica splint Right thumb spica splint, See Instructions, # 1 each, Refills 0, Tot. Refills 0, Maintenance, Wear daily for right de quervain's tenosynovitis M65.4, 02/05/21 15:43:00 EST, Supply Start Date: 02/05/21 Status: Ordered rizatriptan 10 mg oral tablet 1 tablet = 10 mg, By Mouth, Daily, PRN for migraine headache, may repeat dose once in 2 hours, # 12tablet, 2 Refills, Maintenance, 01/20/23 18:14:00 EST, Tablet, [id number], Replaces naratriptan, 183, cm, 01/20/23 18:01:00 EST, Height, 105.4,... Start Date: 01/20/23 Status: Ordered sulindac 150 mg oral tablet 1 tablet = 150 mg, By Mouth, 2 times a day, PRN for pain, # 20 tablet, 0 Refills, Maintenance, 05/07/22 13:47:00 EST, Tablet, [id number], Partial fill upon patient request if the prescriptionis for a schedule II opioid drug., 183, cm, ... Start Date: 05/07/22 Stop Date: 05/17/22 Status: Ordered topiramate 100 mg oral tablet 1 tablet = 100 mg, By Mouth, Daily at bedtime, Macedonian sig. For Migraines, # 30 tablet, 6 Refills, Maintenance, 10/23/21 10:32:00 EDT, Tablet, [id number], 183, cm, 10/23/21 9:25:00 EDT, Height Start Date: 10/23/21 Stop Date: 05/21/22 Status: Ordered venlafaxine 75 mg oral capsule, extended release See Instructions, [facility], # 30 capsule, 5 Refills, Maintenance, 04/19/22 11:57:00 EST, [id number], 183, cm, 03/17/22 13:34:00 EST, Height, 105.4, kg, 03/17/22 13:34:00 EST, Dry Weight Start Date: 04/19/22 Status: Ordered Problem List Condition Confirmation Course Effective Dates Status H ealth Status Informant Asthma Confirmed Active Left carpal tunnel syndrome Confirmed Active Chronic headaches (Migraine w/out Aura) Confirmed Active Chronic low back pain without Radiculopathy Confirmed Active Chronic pain of left knee Confirmed Active Lateral epicondylitis Confirmed Active Obese class I Confirmed Active Obstructive sleep apnea Confirmed Active Social History Social History Type Response Smoking Status Current every day joe solomon entered on: 04/25/14 Sex Patient Care team information Care Team Personnel Name: Corrina Rubio MD Position: S Physician - Primary Care Member Role: PCP Address: Address: [address] [place] [address]- Care Team Related Persons Name: TARYN JOYCE Address: home [address] [place] [address] Name: ABHIJIT JEFF Address: home [address] [place] [id number] Name: LUPE BOATENG Address: home [address] [place], [place] [id number]
--- OUTSIDE RECORDS SUMMARY | 2023-07-04 22:53 | XMS_ITS | Continuity of Care Document ---
Author Organization [facility] Address [address] [place] [address]- Care Team Providers Care Senior Manager Quality Assurance Name Role Phone Ramiro SCHMITT, Corrina Primary Care Physician Encounter [facility] Date(s): 04/29/23 - 05/29/[address] [address]- Attending Physician: Chilo Burton Admitting Physician: AdmtrChilo Referring Physician: Admtr, Ar8 Allergies, Adverse Reactions, Alerts No Known Allergies Immunizations Given and Recorded Vaccine Date Status Refusal Reason SARS-CoV-2(COVID-19)mRNA-LNP vac([id number]) 01/20/23 Given influenza virus vaccine, inactivated 01/20/23 [...] influenza virus vaccine, inactivated 01/26/08 Give n [id number] 12y+ bivalent booster vax 03/16/22 Recorded SARS-CoV-2 [...] EST, Supply Start Date: 05/03/22 Status: Ordered Flonase Allergy Relief 50 mcg/inh nasal spray 1 sprays = 50 mcg, Nares, Both, Daily, shake well before using. Slovak sig, # 9.9 mL, 1 Refills, Maintenance, 05/26/23 13:10:00 EDT, [place], [id number], Partial fill upon patient request if the prescription is for a schedule II opioid drug., 1... Start Date: 05/26/23 Status: Ordered meclizine 25 mg oral tablet 1 tablet = 25 mg, By Mouth, 3 times a day, PRN for dizziness, # 30 tablet, 0 Refills, Acute 09/09/25 13:27:00 EDT, 04/01/23 13:27:00 EST, Tablet, [id number], Partial fill upon patient requestif the prescription is for a schedule II opioid brannon... Start Date: 04/01/23 Stop Date: 09/09/25 Status: Ordered naproxen 500 mg oral tablet 1 tablet = 500 mg, By Mouth, 2 times a day, PRN Pain. Slovak sig with food, # 60 tablet, 1 Refills, Maintenance, 05/26/23 13:05:00 EDT, Tablet, [id number], Partial fill upon patient request if the prescription is for a schedule II opioid dr... Start Date: 05/26/23 Status: Ordered Ventolin HFA 108 mcg/inh inhalation aerosol with adapter 2 puffs, Inhalation, Every 4 hours, PRN for wheezing, # 18 Gm, 1 Refills, Maintenance, 05/26/23 13:00:00 EDT, Aerosol, [id number], Partial fill upon patient request if the prescription is fora schedule II opioid drug., 183, cm, 05/26/23 11:13... Start Date: 05/26/23 Status: Ordered Problem List Condition Confirmation Course [...] Type Response Smoking Status Current every day sm neha entered on: 04/25/14 Sex Patient Care team information Care Team Personnel Name: Corrina Rubio MD Position: [facility] Physician - Primary Care Member Role: PCP Address: Address: [address] [place] [address]- Care Team Related Persons Name: TARYN JOYCE Address: home [address] [place] [address] Name: ABHIJIT JEFF Address: home [address] [address] Name: LUPE BOATENG Address: home [address] [place] [address]
--- OUTSIDE RECORDS SUMMARY | 2023-07-04 22:53 | XMS_ITS | Continuity of Care Document ---
Author Organization [facility] Address [address] [place] [address]- Care Team Providers Care Head Of Ict Name Role Phone Corrina Rubio MD Primary Care Physician Encounter [facility] [id number] Date(s): 01/29/23 - 05/29/[address] [address]- Attending Physician: Joy Edouard MD Admitting Physician: Joy Edouard MD Referring Physician: Corrina Rubio MD Allergies, Adverse Reactions, Alerts No Known Allergies Immunizations Given and Recorded Vaccine Date Status Refusal Reason SARS-CoV-2(COVID-19)mRNA-LNP vac([id number]) 01/20/23 Given influenza virus vaccine, inactivated 01/20/23 [...] influenza virus vaccine, inactivated 01/26/08 Give n [id number] 12y+ bivalent booster vax 03/16/22 Recorded SARS-CoV-2 [...] Nares, Both, Daily, shake well before using. Citizen [place] sig, # 9.9 mL, 1 Refills, Maintenance, 05/26/23 13:10:00 EDT, [place], [id number], Partial fill upon patient request [...] Mouth, 2 times a day, PRN Pain. Citizen [place] sig with food, # 60 tablet, 1 Refills, Maintenance, 05/26/23 13:05:00 EDT, Tablet, [id number], Partial fill upon patient request if the prescription is for a schedule II opioid dr... Start Date: 05/26/23 Status: Ordered Ventolin HFA 108 mcg/inh inhalation aerosol with adapter 2 puffs, Inhalation, Every 4 hours, PRN for wheezing, # 18 Gm, 1 Refills, Maintenance, 05/26/23 13:00:00 EDT, Aerosol, [id number], Partial fill upon patient request if the [...] Team Personnel Name: Corrina Rubio MD Position: [facility] Physician - Primary Care Member Role: PCP Address: Address: [address] [place] [address]- Care Team Related Persons Name: TARYN JOYCE Address: home [address] [place] [address] Name: ABHIJIT JEFF Address: home [address] [address] Name: LUPE BOATENG Address: home [address] [place] [address]
--- OUTSIDE RECORDS SUMMARY | 2023-07-04 22:55 | XMS_ITS | Continuity of Care Document ---
Author Organization [facility] Address [address] [place] [address]- Care Team Providers Care Analysis Engineer Name Role Phone Ramiro SCHMITT, Corrina Primary Care Physician [place] [facility] [place] - 06/25/[address] [address]- Attending Physician: Chilo Burton Admitting Physician: AdmChilo pizarro Referring Physician: AdmtrChilo Allergies, Adverse Reactions, Alerts No Known Allergies Immunizations Given and Recorded Vaccine Date Status Refusal Reason SARS-CoV-2(COVID-19)mRNA-LNP vac([id number]) 01/20/23 Given influenza virus vaccine, inactivated 01/20/23 [...] influenza virus vaccine, inactivated 01/26/08 Give n [id number] 12y+ bivalent booster vax 03/16/22 Recorded SARS-CoV-2 [...] Nares, Both, Daily, shake well before using. Filipino sig, # 9.9 mL, 1 Refills, Maintenance, 05/26/23 13:10:00 EDT, [place], [id number], Partial fill upon patient request [...] Mouth, 2 times a day, PRN Pain. Filipino sig with food, # 60 tablet, 1 Refills, Maintenance, 05/26/23 13:05:00 EDT, [place], [id number], Partial fill upon patient request if the prescription is for a schedule II opioid dr... Start Date: 05/26/23 Status: Ordered Ventolin HFA 108 mcg/inh inhalation aerosol with adapter 2 puffs, Inhalation, Every 4 hours, PRN for wheezing, # 18 Gm, 1 Refills, Maintenance, 05/26/23 13:00:00 EDT, Aerosol, [id number], Partial fill upon patient request [...] day sm neha entered on: 04/25/14 Sex Laboratory * Event Display: Non BH Lab Results Authored Date: * Event Display: Non BH Lab Results Authored Date: * Event Display: Non BH Lab Results Authored Date: [id number] Radiology * Edith Metzger: PERFORM Event Display: Radiology Results Scanned Authored Date: [id number] * Allison , Nanda: PERFORM Event Display: Radiology Results Scanned Authored Date: [id number] * Allison , Nanda: PERFORM Event Display: Radiology Results Scanned Authored Date: [id number] Patient Care team information Care Team Personnel Name: Corrina Rubio MD Position: S Physician - Primary Care Member Role: PCP Address: Address: [address] [place] [address]- Care Team Related Persons Name: TARYN JOYCE Address: home [address] [place] [address] Name: ABHIJIT JEFF Address: home [address] [address] Name: LUPE BOATENG Address: home [address] [place] [address]
[2023-07-04] MEDS: Morphine Sulfate 4 MG/ML CARTRIDGE IM (23:26)
[2023-07-04] MEDS: Cyclobenzaprine HCl 10 MG TABLET PO (23:26)
[2023-07-05 00:31] VITALS: BP 124/85; PULSE 65; RESP 16; TEMP 37.2; O2SAT 93
[2023-07-05] MEDS: Ketorolac Tromethamine 60 MG/2 ML VIAL IM (02:08)
[2023-07-05 02:11] VITALS: BP 126/78; PULSE 77; RESP 18; TEMP 36.7; O2SAT 94
== END 2023-07-05 02:15 | disposition home or self-care (01) ==
PROVIDERS: Emergency Provider Emergency Medicine; PCP Pediatrics
DX: S12.600A Unspecified displaced fracture of seventh cervical vertebra, initial encounter for closed fracture (principal); M54.2 Cervicalgia; R51.9 Headache, unspecified; M25.511 Pain in right shoulder; V43.52XA Car driver injured in collision with other type car in traffic accident, initial encounter; Y93.9 Activity, unspecified; Y92.410 Unspecified street and highway as the place of occurrence of the external cause; Y99.8 Other external cause status
CPT/HCPCS: 70450; 72125; 73030; 96372; 99283; 99284; J1885; J2270